=== PATIENT | male | born 1965 | race Caucasian/White ===

== ENCOUNTER 2020-08-02 15:26 | Inpatient (IN) | payer OTHER ==
[2020-08-02] MEDS ORDERED: Motrin,Rufen800 MG PO (15:46)
[2020-08-02 16:00] VITALS: BP 109/72
[2020-08-02 16:18] LABS: BASO # 0.1 10*3/uL (0.0-0.1); EOS # 0.2 10*3/uL (0.0-0.4); EOS % 3.7 % (1.0-4.0); HEMATOCRIT 38.4 % (42.0-52.0); LYMPH % 20.7 % (27.0-41.0); MEAN CELL VOLUME 88.1 fl (80.0-94.0); MEAN CORPUSCULAR HGB 29.4 pg (27.0-31.0); MEAN CORPUSCULAR HGB CONC 33.3 g/dl (33.0-37.0); MEAN PLATELET VOLUME 9.3 fl (9.6-12.3); MONO # 0.5 10*3/uL (0.1-1.0); MONO % 9.4 % (3.0-9.0); NEUT # 3.2 10*3/uL (2.3-7.9); PLATELET COUNT AUTOMATED 167 10*3/uL (130-400); RED BLOOD COUNT 4.36 10*6/uL (4.50-5.90); RED CELL DISTRI WIDTH 12.3 % (0-14.5); WHITE BLOOD COUNT 4.9 10*3/uL (4.8-10.8)
[2020-08-02 16:36] LABS: ALBUMIN 3.1 gm/dl (3.1-4.5); ALKALINE PHOSPHATASE 111 U/L (45-117); BUN 13 mg/dl (7-24); CHLORIDE 107 mmol/L (98-107); CREATININE 0.62 mg/dL (0.70-1.30); POTASSIUM 4.2 mmol/L (3.5-5.1); SGOT/AST 22 IU/L (3-35); SGPT/ALT 24 U/L (12-78); SODIUM 138 mmol/L (136-145); TOTAL PROTEIN 7.4 gm/dL (6.4-8.2)
[2020-08-02 17:05] LABS: URINE AMPHETAMINES < 1000 (1000ng/ml); URINE BARBITURATES < 200 (200ng/ml); URINE BENZODIAZEPINES < 200 (200ng/ml); URINE CANNABINOIDS (THC) > 50 (50ng/ml); URINE COCAINE < 300 (300ng/ml); URINE METHADONE < 300 (300ng/ml); URINE OPIATES < 300 (300ng/ml)
[2020-08-02 17:06] LABS: URINE PHENCYCLIDINE < 25 (25ng/ml)
[2020-08-02 20:00] VITALS: BP 121/70
[2020-08-03] VITALS: BP 122/75
[2020-08-03 08:00] VITALS: BP 108/59
[2020-08-03 12:00] VITALS: BP 105/66
[2020-08-03 16:00] VITALS: BP 110/62
[2020-08-03 20:06] VITALS: BP 126/70
[2020-08-03 23:48] VITALS: BP 129/72
[2020-08-04 08:16] VITALS: BP 136/76
[2020-08-04 11:11] VITALS: BP 113/63
[2020-08-04 15:50] VITALS: BP 113/52
[2020-08-04 20:00] VITALS: BP 116/53
[2020-08-05] VITALS: BP 132/70
[2020-08-05 06:10] LABS: CREATININE 0.64 mg/dL (0.70-1.30)
[2020-08-05 06:16] LABS: BASO # 0.1 10*3/uL (0.0-0.1); BASO % 0.9 % (0.0-1.0); EOS # 0.1 10*3/uL (0.0-0.4); EOS % 0.8 % (1.0-4.0); HEMATOCRIT 41.5 % (42.0-52.0); LYMPH # 1.5 10*3/uL (1.3-4.4); LYMPH % 22.8 % (27.0-41.0); MEAN CELL VOLUME 85.9 fl (80.0-94.0); MEAN CORPUSCULAR HGB 29.4 pg (27.0-31.0); MEAN CORPUSCULAR HGB CONC 34.2 g/dl (33.0-37.0); MEAN PLATELET VOLUME 9.4 fl (9.6-12.3); MONO # 0.6 10*3/uL (0.1-1.0); MONO % 9.3 % (3.0-9.0); NEUT # 4.3 10*3/uL (2.3-7.9); PLATELET COUNT AUTOMATED 250 10*3/uL (130-400); RED BLOOD COUNT 4.83 10*6/uL (4.50-5.90); RED CELL DISTRI WIDTH 12.3 % (0-14.5); WHITE BLOOD COUNT 6.5 10*3/uL (4.8-10.8)
[2020-08-05 08:00] VITALS: BP 106/60
[2020-08-05] MEDS ORDERED: ZOFRAN 4 MG ED2 TAB PO (11:34)
[2020-08-05] MEDS ORDERED: ATARAX,VISTARIL50 MG PO (11:34)
[2020-08-05] MEDS ORDERED: ROPINIROLE HYD0.5 MG PO (11:34)
[2020-08-05 12:00] VITALS: BP 112/62
== END 2020-08-05 12:27 | disposition home or self-care (01) | DRG 897 ==
LOC: 5E 15:26
PROVIDERS: Internal Medicine; ADMIT Family Medicine; ATTEND Family Medicine
DX: F11.23 Opioid dependence with withdrawal (principal); F17.210 Nicotine dependence, cigarettes, uncomplicated; M32.9 Systemic lupus erythematosus, unspecified; D64.9 Anemia, unspecified; Z71.6 Tobacco abuse counseling; Z82.5 Family history of asthma and other chronic lower respiratory diseases